=== PATIENT | male | born 1990 | race Caucasian/White ===

== ENCOUNTER 2017-11-13 17:58 | Emergency (ER) | payer SELFPAY ==
[~2017-11-13] VITALS: Ht 185.4 cm; Wt 73.0 kg
[2017-11-13] MEDS ORDERED: AMPH20CA PO (18:12)
[2017-11-13 22:30] VITALS: BP 111/77
[2017-11-13] MEDS ORDERED: IBUPROFEN 600MG TABLET PO ONE (22:30)
== END 2017-11-13 23:46 | disposition home or self-care (01) ==
LOC: ER 20:10
DX: S90.02XA Contusion of left ankle, initial encounter (principal); F17.200 Nicotine dependence, unspecified, uncomplicated; V00.131A Fall from skateboard, initial encounter; Y93.89 Activity, other specified; Y92.89 Other specified places as the place of occurrence of the external cause; Y99.8 Other external cause status
CPT/HCPCS: 73610; 73630; 99284; Z7610